=== PATIENT | male | born 1995 | race Caucasian/White ===

== ENCOUNTER 2019-03-28 18:40 | Emergency (ER) | payer BC ==
[2019-03-28 19:15] LABS: ABS Basophils 0.1 10^3/ul (0-0.2); ABS Eosinophils 0.2 10^3/ul (0-0.6); ABS Lymphocytes 2.3 10^3/ul (1.0-4.8); ABS Monocytes 0.6 10^3/ul (0-0.8); ABS Neutrophils 3.2 10^3/ul (1.5-7.7); Eosinophil % 2.9 %; Hematocrit 42 % (42-52); Hemoglobin 14.9 g/dL (14.0-18.0); Lymphocyte % 36.4 %; Mean Corpuscular HGB Conc 36 g/dL (31-36); Mean Corpuscular Hemoglobin 32 pg (27-31); Mean Corpuscular Volume 89 fL (80-94); Mean Platelet Volume 7.9 fL (7.4-10.4); Nucleated Red Blood Cells % 0.1; Platelet Count 252 10^3/uL (150-450); Red Blood Count 4.74 10^6 /uL (4.18-5.48); Red Cell Distribution Width 13 % (10-15); White Blood Count 6.4 10^3/uL (3.5-10.8)
--- NOTE | 2019-03-28 19:19 | ED ---
GI/ HPI - HPI Summary HPI Summary: Patient is a 24 y/o M presenting to [facility] with chief complaint of LLQ discomfort. He states that years ago, he felt a "growth" near a lymph node at his left inguinal area. Patient went to urgent care who referred him to a urologist. 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 Patient states that the urologist had informed him that the tumor was benign. He claims that the tumor has been unchanged since it was first noted. Patient states that he quit smoking on January 29 2019. Since then, the patient has had an increased appetite. However, he notes that he has begun to experience discomfort at his LLQ, nausea, and abdominal bloating as well. Patient states the abdominal sensation is dissimilar to pain and he characterizes this sensation as a discomfort. No radiation of discomfort noted. Duration of episodes of Sx vary depending on the type of food consumed and level of stress. Vomiting and constipation are denied. Food consumption is reported to aggravate his Sx and he also states that he frequently has a BM quickly after he eats each time. No Hx of abdominal surgeries noted. He denies Hx of HTN, cardiac disease, diabetes, and respiratory disease. He states that he has actively been trying to gain weight but states that he has only been able to gain 1 lbs of weight. No significant recent changes to diet are noted. Home medications and allergies are reviewed. - History of Current Complaint Chief Complaint: EDAbdPain Time Seen by Provider: 03/28/19 19:01 Stated Complaint: ABD PAIN/NAUSEA PER PT Hx Obtained From: Patient Onset/Duration: Started Weeks Ago Timing: Intermittent Pain Intensity: 1 Location of Pain: LLQ Pain Characteristics: Other: - discomfort Associated Signs and Symptoms: Positive: Nausea, Change in Appetite - increased after quitting smoking, Abdominal Pain - discomfort, Other: - positive - frequent BMs after food consumption. abdominal bloating,. Negative: Vomiting, Constipation Aggravating Factor(s): Food - Allergy/Home Medications Allergies/Adverse Reactions: Allergies Allergy/AdvReac Type Severity Reaction Status Date / Time No Known Allergies Allergy Verified 03/28/19 18:45 Home Medications: Home Medications NK [No Home Medications Reported] 03/28/19 [History Confirmed 03/28/19] PMH/Surg Hx/FS Hx/Imm Hx Endocrine/Hematology History: Denies: Hx Diabetes Cardiovascular History: Denies: Hx Hypertension Infectious Disease History: No Infectious Disease History: Denies: Traveled Outside the [place] in Last 30 Days - Family History Known Family History: Negative: Blood Disorder - Social History Smoking Status (MU): Former Smoker Review of Systems Negative: Fever - on vitals, temp is 98.6 F Gastrointestinal: Other - positive - abdominal bloating, increased appetite; negative - constipation Positive: Abdominal Pain - discomfort , Nausea. Negative: Vomiting All Other Systems Reviewed And Are Negative: Yes Physical Exam - Summary Physical Exam Summary: Appearance: Well-appearing, Well-nourished, lying in bed comfortably Skin: Warm, dry, no obvious rash Eyes: sclera anicteric, no conjunctival pallor ENT: mucous membranes moist, pharynx appears normal Neck: Supple, nontender Respiratory: Clear to auscultation, no signs of respiratory distress Cardiovascular: Normal S1, S2. No murmurs. Normal distal pulses in tibial and radial bilaterally. Abdomen: Soft, nontender, normal active bowel sounds present Musculoskeletal: Normal, Strength/ROM Intact Triage Information Reviewed: Yes Vital Signs On Initial Exam: Initial Vitals Temp Pulse Resp BP Pulse Ox 98.6 F 77 16 144/98 99 03/28/19 18:42 03/28/19 18:42 03/28/19 18:42 03/28/19 18:42 03/28/19 18:42 Vital Signs Reviewed: Yes Procedures - Sedation Patient Received Moderate/Deep Sedation with Procedure: No Diagnostics - Vital Signs Vital Signs Temp Pulse Resp BP Pulse Ox 03/28/19 19:06 98.1 F 03/28/19 18:42 98.6 F 77 16 144/98 99 - Laboratory Result Diagrams: 03/28/19 19:08 03/28/19 19:08 Lab Statement: Any lab studies that have been ordered have been reviewed, and results considered in the medical decision making process. - CT CT ABD/PEL CT Interpretation Completed By: Radiologist Summary of CT Findings: IMPRESSION: No acute CT pathology. THIS REPORT WAS REVIEWED BY ED PHYSICIAN. Re-Evaluation - Re-Evaluation First Eval Re-Evaluation Time: 22:06 Comment: Patient began to have complaints of dental pain. Tylenol 975 mg PO ordered. Second Eval Re-Evaluation Time: 22:48 Comment: Results of workup discussed, patient discharged to home and will follow up with GI. GIGU Course/Dx - Course Course Of Treatment: Patient is a 24 y/o M presenting to [facility] with chief complaint of LLQ discomfort. He states that years ago, he felt a "growth" near a lymph node at his left inguinal area. Patient went to urgent care who referred him to a urologist. 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 Patient states that the urologist had informed him that the tumor was benign. He claims that the tumor has been unchanged since it was first noted. Patient states that he quit smoking on January 29 2019. Since then, the patient has had an increased appetite. However, he notes that he has begun to experience discomfort at his LLQ, nausea, and abdominal bloating as well. Patient states the abdominal sensation is dissimilar to pain and he characterizes this sensation as a discomfort. No radiation of discomfort noted. Duration of episodes of Sx vary depending on the type of food consumed and level of stress. Vomiting and constipation are denied. Food consumption is reported to aggravate his Sx and he also states that he frequently has a BM quickly after he eats each time. No Hx of abdominal surgeries noted. Physical exam is unremarkable. Bloodwork was obtained and within normal limits with exception of MCH 32, glucose 112, and lipase <10. UA was negative. Patient began to have complaints of dental pain. Tylenol [address] ABD /PEL IMPRESSION: No acute CT pathology. Results of workup discussed, patient discharged to home and will follow up with GI. - Diagnoses Provider Diagnoses: Chronic abdominal pain Discharge ED - Sign-Out/Discharge Documenting (check all that apply): Patient Departure - discharge - Discharge Plan Condition: Good Disposition: HOME Patient Education Materials: Irritable Bowel Syndrome (ED) Referrals: Raffi Yusuf MD [Medical Doctor] - Additional Instructions: The lab studies and CT scan were normal tonight, there is no sign of an active infection or other serious problem in the abdomen. You could be developing a condition called Irritable Bowel Syndrome, which is a benign condition that can cause quite a bit of discomfort in the abdomen. I would recommend keeping a food diary and see if you can identify any pattern when matched against your symptoms, and also make an appointment with the gastroenterology group for further care. They treat a lot of people with this problem, and they are also trained to diagnose other conditions that could be causing your symptoms. - Billing Disposition and Condition Condition: GOOD Disposition: Home - Attestation Statements Document Initiated by Tico: Yes Documenting Scribe: LUDWIG JAIMES Provider For Whom Tico is Documenting (Include Credential): ZAIDA MONTE MD Scribe Attestation: ILUDWIG, scribed for ZAIDA MONTE MD on 03/29/19 at 0111. Scribe Documentation Reviewed: Yes Provider Attestation: The documentation as recorded by the LUDWIG zimmerman accurately reflects the service I personally performed and the decisions made by me, ZAIDA MONTE MD Status of Scribe Document: Viewed
[2019-03-28 19:31] LABS: ALT 16 U/L (7-52); AST 17 U/L (13-39); Albumin 4.9 g/dL (3.2-5.2); Albumin/Globulin Ratio 1.8 (1-3); Alkaline Phosphatase 49 U/L (34-104); Anion Gap 6 mmol/L (2-11); BUN/Creatinine Ratio 19.3 (8-20); Blood Urea Nitrogen 17 mg/dL (6-24); C Reactive Protein < 1.00 mg/L (<8.01); CO2 Carbon Dioxide 30 mmol/L (22-32); Calcium 9.7 mg/dL (8.6-10.3); Chloride 103 mmol/L (101-111); EGFR African American 129.9 (>60); EGFR Non-African American 107.3 (>60); Globulin 2.8 g/dL (2-4); Glucose 112 mg/dL (70-100); Potassium 3.7 mmol/L (3.5-5.0); Sodium 139 mmol/L (135-145); Total Protein 7.7 g/dL (6.4-8.9)
[2019-03-28 20:03] LABS: Urine Appearance Clear; Urine Bilirubin Negative (Negative); Urine Blood Negative (Negative); Urine Color Straw; Urine Glucose Negative (Negative); Urine Ketones Negative (Negative); Urine Nitrite Negative (Negative); Urine Protein Negative (Negative); Urine Specific Gravity 1.009 (1.010-1.030); Urine Urobilinogen Negative (Negative)
[2019-03-28] MEDS ORDERED: Iohexol 300* (CONTRAST) 10 ML SDV IV ONE (20:50)
[2019-03-28] MEDS ORDERED: Acetaminophen TAB* 325 MG PO ONE (22:06)
[2019-03-28 23:12] VITALS: BP 122/75
== END 2019-03-28 23:08 | disposition home or self-care (01) ==
LOC: ED 18:40
DX: R10.32 Left lower quadrant pain (principal); R14.0 Abdominal distension (gaseous); R11.0 Nausea; Z87.891 Personal history of nicotine dependence; K08.89 Other specified disorders of teeth and supporting structures
CPT/HCPCS: 36415; 74177; 80053; 81003; 83690; 85025; 86140; 99283; A9270-GY; Q9967